=== PATIENT | female | born 1995 | race Caucasian/White ===

== ENCOUNTER 2021-03-13 18:47 | Emergency (ER) | payer MEDICAID ==
[~2021-03-13] VITALS: Ht 162.6 cm; Wt 84.8 kg
[2021-03-13 19:10] VITALS: BP_SYST 137
[2021-03-13] MEDS ORDERED: ONDANSETRON 4 MG ODT TAB PO ONE (19:45)
[2021-03-13] MEDS ORDERED: METOCLOPRAMIDE HCL 10 MG TABLET PO ONE ×2 (19:45→20:45)
[2021-03-13] MEDS ORDERED: PYRI50CA PO (20:35)
[2021-03-13] MEDS ORDERED: DOXY25TA61 PO (20:35)
[2021-03-13 20:37] LABS: BASOPHILS % (AUTO) 0.4 % (0.0-2.0); EOSINOPHILS # (AUTO) 0.2 K/uL (0.0-0.4); EOSINOPHILS % (AUTO) 1.7 % (0.0-4.0); HEMOGLOBIN 13.1 g/dL (12.0-16.0); LYMPHOCYTES % (AUTO) 22.3 % (20.5-51.5); MEAN CORPUSCULAR HEMOGLOBIN 33 pg (27-31); MEAN CORPUSCULAR HGB CONC 35 % (32-36); MEAN CORPUSCULAR VOLUME 93 fL (79.0-98.0); MONOCYTES # (AUTO) 0.6 K/uL (0.0-1.0); MONOCYTES % (AUTO) 6.9 % (1.7-9.3); NEUTROPHILS # (AUTO) 6.3 K/uL (1.8-7.7); NEUTROPHILS % (AUTO) 68.7 % (40.0-70.0); PLATELET COUNT (AUTO) 231 K/uL (130-430); RED CELL DISTRIBUTION WIDTH 11.7 % (9.0-15.0); WHITE BLOOD COUNT (AUTO) 9.1 K/uL (4.8-10.8)
[2021-03-13] MEDS ORDERED: METOCLOPRAMIDE HCL 10 MG TABLET ONE (20:44)
[2021-03-13 20:50] LABS: BILIRUBIN,URINE NEGATIVE (NEGATIVE); BLOOD, URINE NEGATIVE (NEGATIVE); CLARITY/URINE CLEAR (CLEAR); COLOR,URINE YELLOW (YELLOW); GLUCOSE,URINE NEGATIVE (NEGATIVE); KETONES,URINE NEGATIVE (NEGATIVE); LEUKOCYTE ESTERASE ,URINE NEGATIVE (NEGATIVE); NITRITE, URINE NEGATIVE (NEGATIVE); PROTEIN URINE NEGATIVE (NEGATIVE); UROBILINOGEN,URINE 0.2 (0.2-1.0)
[2021-03-13 20:58] LABS: CALCIUM 9.1 mg/dL (8.4-11.0); CREATININE 0.64 mg/dL (0.55-1.30); POTASSIUM 3.5 mmol/L (3.5-5.1)
[2021-03-13] MEDS ORDERED: PROG200C11 PO (21:07)
[2021-03-13] MEDS ORDERED: CHLO4TAB36 PO (21:07)
[2021-03-13] MEDS ORDERED: PHE25 PO (21:07)
[2021-03-13 21:28] LABS: ALBUMIN 3.6 g/dL (3.4-4.8)
[2021-03-13 21:55] LABS: TOTAL BILIRUBIN 0.2 mg/dL (0.0-1.0)
[2021-03-13 22:25] VITALS: BP_SYST 112
== END 2021-03-13 22:25 | disposition home or self-care (01) ==
LOC: SED 18:47
DX: O26.891 Other specified pregnancy related conditions, first trimester (principal); R10.2 Pelvic and perineal pain; O21.8 Other vomiting complicating pregnancy; Z3A.12 12 weeks gestation of pregnancy; Z79.899 Other long term (current) drug therapy
CPT/HCPCS: 36415; 76801; 80053; 81003; 84702; 85025; 86886; 86900; 86901; 99284; J8597; Q0162

== ENCOUNTER 2021-04-03 10:55 | Emergency (ER) | payer OTHER, MEDICAID ==
[~2021-04-03] VITALS: Ht 162.6 cm; Wt 77.1 kg
[~2021-04-03 10:55] MED LIST: CHLO4TAB36 PO; DOXY25TA61 PO; PHE25 PO; PROG200C11 PO; PYRI50CA PO
[2021-04-03 11:07] VITALS: BP_SYST 132
[2021-04-03 11:41] LABS: BASOPHILS % (AUTO) 0.3 % (0.0-2.0); EOSINOPHILS # (AUTO) 0.2 K/uL (0.0-0.4); EOSINOPHILS % (AUTO) 1.7 % (0.0-4.0); HEMOGLOBIN 12.2 g/dL (12.0-16.0); LYMPHOCYTES # (AUTO) 1.7 K/uL (1.0-5.5); LYMPHOCYTES % (AUTO) 19.2 % (20.5-51.5); MEAN CORPUSCULAR HEMOGLOBIN 33 pg (27-31); MEAN CORPUSCULAR HGB CONC 35 % (32-36); MEAN CORPUSCULAR VOLUME 93 fL (79.0-98.0); MONOCYTES # (AUTO) 0.7 K/uL (0.0-1.0); MONOCYTES % (AUTO) 7.9 % (1.7-9.3); NEUTROPHILS # (AUTO) 6.4 K/uL (1.8-7.7); NEUTROPHILS % (AUTO) 70.9 % (40.0-70.0); PLATELET COUNT (AUTO) 222 K/uL (130-430); RED BLOOD CELL COUNT(AUTO) 3.76 MIL/uL (4.2-6.2)
[2021-04-03 13:07] VITALS: BP_SYST 129
== END 2021-04-03 13:07 | disposition home or self-care (01) ==
LOC: SED 10:55
DX: O20.0 Threatened abortion (principal); Z79.899 Other long term (current) drug therapy; Z3A.12 12 weeks gestation of pregnancy
CPT/HCPCS: 36415; 76805-TC; 84702; 85025; 99284

== ENCOUNTER 2021-07-23 22:35 | Observation (INO) | payer MEDICAID, OTHER ==
[~2021-07-23] VITALS: Ht 162.6 cm; Wt 88.0 kg
== END 2021-07-24 01:30 | disposition home or self-care (01) ==
LOC: SPU 22:35
PROVIDERS: ADMIT Obstetrics & Gynecology; ATTEND Obstetrics & Gynecology
DX: O36.8130 Decreased fetal movements, third trimester, not applicable or unspecified (principal); O26.853 Spotting complicating pregnancy, third trimester; Z3A.28 28 weeks gestation of pregnancy
CPT/HCPCS: 76819; 81002; G0378 ×2

== ENCOUNTER 2023-04-22 19:24 | Emergency (ER) | payer OTHER ==
[~2023-04-22] VITALS: Ht 167.6 cm; Wt 72.6 kg
[2023-04-22 19:42] VITALS: BP_SYST 151; PULSE 92; RESP 18; TEMP 98.3; O2SAT 99
[2023-04-22] MEDS ORDERED: IBUP-1971 PO (20:32)
== END 2023-04-22 20:42 | disposition home or self-care (01) ==
LOC: SED 19:24
DX: S13.4XXA Sprain of ligaments of cervical spine, initial encounter (principal); S33.5XXA Sprain of ligaments of lumbar spine, initial encounter; Z79.899 Other long term (current) drug therapy; V89.2XXA Person injured in unspecified motor-vehicle accident, traffic, initial encounter; Y93.89 Activity, other specified; Y92.89 Other specified places as the place of occurrence of the external cause; Y99.8 Other external cause status
CPT/HCPCS: 99282